=== PATIENT | male | born 1950 ===

== ENCOUNTER 2024-06-20 08:35 | Outpatient (REF) | payer MEDICARE, SELFPAY ==
[2024-06-20 11:39] LABS: INTERNATIONAL NORM RATIO 2.9 (0.9-1.1); Prothrombin Time 35.6 SEC (11.1-13.3)
== END 2024-06-20 08:36 | disposition home or self-care (01) ==
LOC: HO.WFDLDS 08:35
PROVIDERS: Visit Provider Hospitalist
DX: Z51.81 Encounter for therapeutic drug level monitoring (principal)
CPT/HCPCS: 36415; 85610